=== PATIENT | male | born 1960 | race Caucasian/White ===

== ENCOUNTER → 2016-10-26 | Outpatient (CLI) | payer OTHER | LOC: FCPNEURO 23:24 | PROVIDERS: ATTEND Psychiatry & Neurology Sleep Medicine | DX: G47.33 Obstructive sleep apnea (adult) (pediatric) (principal); G47.39 Other sleep apnea ==

== ENCOUNTER → 2016-12-16 | Outpatient (CLI) | payer OTHER | LOC: FCPNEURO 23:09 | PROVIDERS: ATTEND Psychiatry & Neurology Sleep Medicine | DX: G47.39 Other sleep apnea (principal) ==